=== PATIENT | female | born 1970 | race Native Hawaiian/Other Pacific Islander ===

== ENCOUNTER 2016-06-12 21:00 | Emergency (ER) | payer OTHER ==
[~2016-06-12] VITALS: Ht 162.6 cm; Wt 127.0 kg
[2016-06-12 21:37] LABS: PLATELET COUNT 176 K/uL (152-353)
[2016-06-12 21:41] LABS: POTASSIUM 3.7 mmol/L (3.6-5.2)
[2016-06-12 22:57] VITALS: BP 167/120; TEMP 97.9
== END 2016-06-12 22:59 | disposition home or self-care (01) ==
LOC: ED 21:00
PROVIDERS: Family Medicine
DX: J44.1 Chronic obstructive pulmonary disease with (acute) exacerbation (principal); J20.9 Acute bronchitis, unspecified; R03.0 Elevated blood-pressure reading, without diagnosis of hypertension
CPT/HCPCS: 80053; 85027; 87804; 99283

== ENCOUNTER 2017-04-23 10:29 | Observation (INO) | payer OTHER ==
[~2017-04-23] VITALS: Ht 162.6 cm; Wt 130.3 kg
[2017-04-23 10:35] VITALS: BP 133/97; TEMP 98.8
[2017-04-23 11:58] LABS: PLATELET COUNT 163 K/uL (152-353)
[2017-04-23 12:24] LABS: POTASSIUM 4.6 mmol/L (3.6-5.2)
[2017-04-23 13:00] VITALS: BP 156/91
[2017-04-23 15:00] VITALS: BP 129/93
[2017-04-23 16:00] VITALS: BP 135/80; TEMP 97.7
[2017-04-23 19:35] VITALS: BP 135/80; TEMP 97.7; Ht 162.6 cm; Wt 130.3 kg
[2017-04-23 20:00] VITALS: BP 149/78; TEMP 97.8
[2017-04-23] MEDS ORDERED: LISI20TA11 PO (20:06)
[2017-04-24] VITALS: BP 165/74; TEMP 98.7
[2017-04-24 04:00] VITALS: BP 138/69; TEMP 99.1
[2017-04-24 06:06] LABS: PLATELET COUNT 149 K/uL (152-353)
[2017-04-24 08:00] VITALS: BP 168/88; TEMP 98
[2017-04-24 12:00] VITALS: BP 164/95; TEMP 98
[2017-04-24] MEDS ORDERED: MEDROL DOSEPAK4 MG PO (13:53)
[2017-04-24] MEDS ORDERED: LEVO250T2 PO (13:53)
[2017-04-24] MEDS ORDERED: AZIT250T3 PO (13:53)
--- NOTE | 2017-04-24 16:30 | NUR ---
IV D/C'D. D/C INSTRUCTIONS GIVEN. PT HAS NO FUTHER QUESTIONS. PT ABULATED OUT AT THIS TIME WITH NO PROBLEMS NOTED. PT INSTRUCTED TO MAKE FU WITH PCP IN ONE WEEK.
== END 2017-04-24 16:30 | disposition home or self-care (01) ==
LOC: ED 10:29 → MED/SURG 14:15
DX: J44.1 Chronic obstructive pulmonary disease with (acute) exacerbation (principal); J09.X2 Influenza due to identified novel influenza A virus with other respiratory manifestations; R06.02 Shortness of breath
CPT/HCPCS: 36415; 36600; 80053; 82150; 82805; 83690; 85027; 87804; 93005; 94640; 94664; 94760; 96365; 96375; 99220; 99284; G0378; J1650; J1885; J1956; J2405; J2920

== ENCOUNTER 2017-12-25 14:36 | Outpatient (CLI) | payer OTHER ==
[~2017-12-25 14:36] MED LIST: AZIT250T3 PO; LEVO250T2 PO; LISI20TA11 PO; MEDROL DOSEPAK4 MG PO
== END 2017-12-25 14:40 | disposition short-term general hospital (02) ==
LOC: AMB 14:36
DX: R10.31 Right lower quadrant pain (principal); M79.661 Pain in right lower leg; M25.551 Pain in right hip; V49.9XXA Car occupant (driver) (passenger) injured in unspecified traffic accident, initial encounter; Y93.89 Activity, other specified; Y92.89 Other specified places as the place of occurrence of the external cause; Y99.8 Other external cause status
CPT/HCPCS: A0425; A0427

== ENCOUNTER 2017-12-25 14:40 | Emergency (ER) | payer OTHER ==
[~2017-12-25] VITALS: Ht 162.6 cm; Wt 113.4 kg
[2017-12-25 14:45] VITALS: TEMP 97.8
[2017-12-25 16:42] VITALS: BP 186/110
== END 2017-12-25 17:10 | disposition home or self-care (01) ==
LOC: ED 14:40
DX: S00.93XA Contusion of unspecified part of head, initial encounter (principal); S10.93XA Contusion of unspecified part of neck, initial encounter; S40.011A Contusion of right shoulder, initial encounter; S70.01XA Contusion of right hip, initial encounter; V53.5XXA Driver of pick-up truck or van injured in collision with car, pick-up truck or van in traffic accident, initial encounter
CPT/HCPCS: 96374; 96375; 99284; J1885; J3490

== ENCOUNTER 2018-01-27 18:29 | Emergency (ER) | payer OTHER ==
[~2018-01-27] VITALS: Ht 162.6 cm; Wt 113.4 kg
[2018-01-27 19:04] LABS: PLATELET COUNT 196 K/uL (152-353)
[2018-01-27 19:09] LABS: POTASSIUM 3.3 mmol/L (3.6-5.2)
[2018-01-27 19:28] VITALS: TEMP 97.5
[2018-01-27 19:35] VITALS: BP 186/108
== END 2018-01-27 19:36 | disposition short-term general hospital (02) ==
LOC: ED 18:29
PROVIDERS: Emergency Medicine
DX: I21.9 Acute myocardial infarction, unspecified (principal)
CPT/HCPCS: 80053; 82550; 82553; 84484; 85027; 93005; 96365; 96374; 96375; 99285; J1644; J2270; J2405

== ENCOUNTER 2018-01-27 19:35 | Outpatient (CLI) | payer OTHER | END 2018-01-27 20:10 | disposition short-term general hospital (02) | LOC: AMB 19:35 | DX: I21.9 Acute myocardial infarction, unspecified (principal) | CPT/HCPCS: A0425; A0427 ==

== ENCOUNTER 2018-10-10 14:00 | Emergency (ER) | payer OTHER ==
[~2018-10-10] VITALS: Ht 162.6 cm; Wt 129.3 kg
[2018-10-10 14:05] VITALS: TEMP 97
[2018-10-10] MEDS ORDERED: METO50TA27 PO (14:22)
[2018-10-10] MEDS ORDERED: CLOP75TA2 PO (14:22)
[2018-10-10] MEDS ORDERED: LIPITOR20 MG PO (14:22)
[2018-10-10] MEDS ORDERED: LOSA50TA PO (14:23)
[2018-10-10] MEDS ORDERED: METF500T PO (14:24)
[2018-10-10] MEDS ORDERED: GABA300C2 PO (14:25)
[2018-10-10] MEDS ORDERED: HYDROCHLOROT12.5 M1 PO (14:26)
[2018-10-10] MEDS ORDERED: HYDROXYZINE HYD25 MG PO (14:27)
[2018-10-10] MEDS ORDERED: TESSALON PER100 MG PO (14:28)
[2018-10-10] MEDS ORDERED: LORATADINE10 M1 PO (14:29)
[2018-10-10] MEDS ORDERED: ASPIRIN81 M1 PO (14:29)
[2018-10-10] MEDS ORDERED: HYDR25TA60 PO (14:31)
[2018-10-10 15:02] LABS: PLATELET COUNT 145 K/uL (152-353)
[2018-10-10 15:12] LABS: POTASSIUM 4.3 mmol/L (3.6-5.2); SODIUM 140 mmol/L (136-145)
[2018-10-10 17:00] VITALS: BP 183/90
== END 2018-10-10 17:07 | disposition home or self-care (01) ==
LOC: ED 14:00
PROVIDERS: Family Medicine
DX: R07.89 Other chest pain (principal); I10 Essential (primary) hypertension; F17.210 Nicotine dependence, cigarettes, uncomplicated; I45.81 Long QT syndrome
CPT/HCPCS: 80053; 81000; 82550; 84484; 85027; 85379; 87086; 87088; 93005; 99284

== ENCOUNTER 2018-12-10 17:09 | Emergency (ER) | payer OTHER ==
[~2018-12-10] VITALS: Ht 162.6 cm; Wt 129.3 kg
[~2018-12-10 17:09] MED LIST changes: +ASPIRIN81 M1 PO; +CLOP75TA2 PO; +GABA300C2 PO; +HYDR25TA60 PO; +HYDROCHLOROT12.5 M1 PO; +HYDROXYZINE HYD25 MG PO; +LIPITOR20 MG PO; +LORATADINE10 M1 PO; +LOSA50TA PO; +METF500T PO; +METO50TA27 PO; +TESSALON PER100 MG PO
[2018-12-10 17:28] VITALS: TEMP 98
[2018-12-10 19:04] LABS: PLATELET COUNT 147 K/uL (152-353)
[2018-12-10 19:10] LABS: POTASSIUM 3.6 mmol/L (3.6-5.2)
[2018-12-10 20:35] VITALS: BP 181/94
== END 2018-12-10 20:41 | disposition home or self-care (01) ==
LOC: ED 17:09
PROVIDERS: Family Medicine
DX: J45.901 Unspecified asthma with (acute) exacerbation (principal); F17.210 Nicotine dependence, cigarettes, uncomplicated
CPT/HCPCS: 36415; 80053; 85027; 94664; 99282; 99283

== ENCOUNTER 2020-08-10 13:43 | Outpatient (CLI) | payer OTHER | END 2020-08-10 21:22 | disposition home or self-care (01) | LOC: RESP 13:43 | PROVIDERS: ATTEND Internal Medicine Sleep Medicine | DX: G47.33 Obstructive sleep apnea (adult) (pediatric) (principal); J45.909 Unspecified asthma, uncomplicated ==

== ENCOUNTER 2022-05-05 20:40 | Emergency (ER) | payer OTHER ==
[~2022-05-05] VITALS: Ht 162.6 cm; Wt 129.3 kg
[2022-05-05 21:05] VITALS: TEMP 98.7
[2022-05-05 21:50] LABS: PLATELET COUNT 169 K/uL (152-353)
[2022-05-05 21:55] LABS: POTASSIUM 4.6 mmol/L (3.6-5.2)
[2022-05-06 00:15] VITALS: BP 164/79
== END 2022-05-06 00:15 | disposition home or self-care (01) ==
LOC: ED 20:40
PROVIDERS: Emergency Medicine Emergency Medical Services
DX: J44.1 Chronic obstructive pulmonary disease with (acute) exacerbation (principal); J18.9 Pneumonia, unspecified organism; Z91.14 Patient's other noncompliance with medication regimen; F17.210 Nicotine dependence, cigarettes, uncomplicated; Z20.822 Contact with and (suspected) exposure to COVID-19
CPT/HCPCS: 36415; 36600; 80048; 82805; 84484; 85027; 87502; 87635; 93005; 94664; 96360; 96365; 99284; J0696; J1940; J2930; U0003

== ENCOUNTER 2022-05-13 11:38 | Emergency (ER) | payer OTHER ==
[~2022-05-13] VITALS: Ht 162.6 cm; Wt 113.4 kg
[2022-05-13 11:40] VITALS: TEMP 97.1
[2022-05-13 12:13] LABS: PLATELET COUNT 154 K/uL (152-353)
[2022-05-13 12:14] LABS: POTASSIUM 4.2 mmol/L (3.6-5.2)
[2022-05-13 12:48] LABS: PARTIAL THROMBOPLASTIN TIME 22.7 SECONDS (24.5-33.6)
[2022-05-13 13:44] VITALS: BP 164/94
== END 2022-05-13 13:44 | disposition home or self-care (01) ==
LOC: ED 11:38
PROVIDERS: Emergency Medicine
DX: J18.9 Pneumonia, unspecified organism (principal); J44.9 Chronic obstructive pulmonary disease, unspecified; E11.65 Type 2 diabetes mellitus with hyperglycemia; Z79.84 Long term (current) use of oral hypoglycemic drugs; I10 Essential (primary) hypertension; F17.210 Nicotine dependence, cigarettes, uncomplicated
CPT/HCPCS: 36415; 80053; 83880; 84484; 85027; 85379; 85610; 85730; 93005; 94664; 96374; 99284; J2920

== ENCOUNTER 2022-05-17 03:10 | Emergency (ER) | payer OTHER ==
[~2022-05-17] VITALS: Ht 162.6 cm; Wt 113.4 kg
[2022-05-17 03:10] VITALS: TEMP 96.6
[2022-05-17 03:38] LABS: PLATELET COUNT 243 K/uL (152-353)
[2022-05-17 03:42] LABS: POTASSIUM 4.7 mmol/L (3.6-5.2)
[2022-05-17 03:51] LABS: PARTIAL THROMBOPLASTIN TIME 22.2 SECONDS (24.5-33.6)
[2022-05-17 05:32] VITALS: BP 146/96
== END 2022-05-17 05:32 | disposition home or self-care (01) ==
LOC: ED 03:10
PROVIDERS: Emergency Medicine
DX: J96.90 Respiratory failure, unspecified, unspecified whether with hypoxia or hypercapnia (principal); J18.9 Pneumonia, unspecified organism; F17.210 Nicotine dependence, cigarettes, uncomplicated; Z11.52 Encounter for screening for COVID-19
CPT/HCPCS: 36415; 36600; 80053; 82805; 83605; 83880; 84484; 85027; 85379; 85610; 85730; 87040; 87635; 93005; 94664; 96361; 96365; 96367; 96374; 96375; 99285; J1580; J1940; J1956; J2270; J2405; J2543; U0003

== ENCOUNTER 2022-07-29 15:43 | Outpatient (CLI) | payer OTHER ==
[2022-07-29 16:13] LABS: PLATELET COUNT 174 K/uL (152-353)
[2022-07-29 16:19] LABS: POTASSIUM 4.2 mmol/L (3.6-5.2)
== END 2022-07-29 22:28 | disposition home or self-care (01) ==
LOC: RAD 15:43
PROVIDERS: ATTEND Surgery Vascular Surgery
DX: Z01.810 Encounter for preprocedural cardiovascular examination (principal); Z01.811 Encounter for preprocedural respiratory examination; Z01.812 Encounter for preprocedural laboratory examination; I70.218 Atherosclerosis of native arteries of extremities with intermittent claudication, other extremity
CPT/HCPCS: 36415; 80048; 85027; 93005

== ENCOUNTER 2022-10-19 00:52 | Emergency (ER) | payer OTHER ==
[~2022-10-19] VITALS: Ht 162.6 cm; Wt 117.9 kg
[2022-10-19 02:12] VITALS: BP 136/86; TEMP 97.6
== END 2022-10-19 02:12 | disposition home or self-care (01) ==
LOC: ED 00:52
PROC: 2W3CX1Z Immobilization of Right Lower Arm using Splint (ICD-10-PCS; principal; 2022-10-19)
DX: S52.501A Unspecified fracture of the lower end of right radius, initial encounter for closed fracture (principal); W01.0XXA Fall on same level from slipping, tripping and stumbling without subsequent striking against object, initial encounter; F17.210 Nicotine dependence, cigarettes, uncomplicated
CPT/HCPCS: 99283